=== PATIENT | female | born 1980 | race Caucasian/White ===

== ENCOUNTER 2019-08-31 16:13 | Emergency (ER) | payer OTHER ==
--- NOTE | 2019-08-31 16:24 | PDOC ---
Rapid Medical Evaluation Medical Evaluation: Allergies Allergy/AdvReac Type Severity Reaction Status Date / Time No Known Allergies Allergy Verified 09/04/14 12:05 I have performed a brief in-person evaluation of this patient. The patient presents with a chief complaint of: hx of DM, hypothyroidism found out she is via home preg test last week; light vaginal bleeding from yesterday; denies dysuria, abdominal pain; LNMP Jun 13 (estimated); cycle in Jul was short (1-2 days) Pertinent physical exam findings: In NAD, pelvic deferred I have ordered the following: Labs, pelvic US The patient will proceed to the ED for further evaluation. 08/31/19 16:20
[2019-08-31 16:35] VITALS: BP 122/82; PULSE 61; TEMP 97.9; BMI 30.9
[2019-08-31 18:55] LABS: EPI CELLS 1.9 /HPF (0-5/HPF); HYALINE CASTS 7 /lpf (0-8); URINE APPEARANCE TURBID; URINE BILIRUBIN NEGATIVE (NEGATIVE); URINE COLOR ORANGE; URINE GLUCOSE (UA) NEGATIVE (NEGATIVE); URINE KETONE NEGATIVE (NEGATIVE); URINE LEUK ESTERASE 1+ (NEGATIVE); URINE NITRITE NEGATIVE (NEGATIVE); URINE PROTEIN 2+ (NEGATIVE); URINE RBC 202 /hpf (0-4); URINE UROBILINOGEN 0.2 mg/dL (0.2-1.0); URINE WBC 34 /hpf (0-5)
--- NOTE | 2019-08-31 19:09 | PDOC ---
Documentation entered by Cristela Bland SCRIBE, acting as scribe for Margret Begum MD. Margret Begum MD: This documentation has been prepared by the scribe, Cristela Bland SCRIBE, under my direction and personally reviewed by me in its entirety. I confirm that the documentation accurately reflects all work, treatment, procedures, and medical decision making performed by me. History of Present Illness - General Chief Complaint: Vaginal Bleeding Stated Complaint: VAGINAL BLEEDING/ PREG. Time Seen by Provider: 08/31/19 16:20 History Source: Patient Exam Limitations: No Limitations - History of Present Illness Initial Comments: 08/31/19 18:13 The patient is a 39-year-old female, , with a past medical history significant for DM and hypothyroidism who presents to the emergency department with vaginal bleeding. The patient reports she noticed blood on the tissue while wiping. The patient states she has a pad on, however, she denies seeing blood on the pad. The patient reports her LMP was the beginning of July. The patient reports for the past 6-7 months shes been on fertility treatment with Dr. Pérez Westfall, reports she stopped seeing him due to travel issues but states she was still compliant with the medications. Denies hormone use. Allergies: NKA Social history: Denies the use of tobacco or recreational drugs. Rare use of alcohol. Surgical history: Denies surgical history. PCP: Dr. Nicola Gudino. Past History - Past Medical History Allergies/Adverse Reactions: Allergies Allergy/AdvReac Type Severity Reaction Status Date / Time No Known Allergies Allergy Verified 08/31/19 16:35 Home Medications: Ambulatory Orders Naproxen [Naprosyn -] 500 mg PO BID #30 tablet 06/26/14 Bacitracin - [Bacitracin Topical Ointment -] 1 applic TP TID #1 tube 09/04/14 COPD: No - Psycho Social/Smoking Cessation Hx Smoking History: Never smoked Hx Alcohol Use: No Drug/Substance Use Hx: No Substance Use Type: None Review of Systems - Review of Systems Able to Perform ROS?: Yes Comments:: 08/31/19 18:13 GENERAL/CONSTITUTIONAL: No fever or chills. No weakness. HEAD, EYES, EARS, NOSE AND THROAT: No change in vision. No ear pain or discharge. No sore throat. CARDIOVASCULAR: No chest pain, no shortness of breath, no loss of consciousness RESPIRATORY: No cough, wheezing, or hemoptysis. GASTROINTESTINAL: No nausea, vomiting, diarrhea or constipation. GENITOURINARY: +vaginal bleeding. No dysuria, frequency, or change in urination. MUSCULOSKELETAL: No joint or muscle swelling or pain. No neck or back pain. SKIN: No rash NEUROLOGIC: No vertigo, no change in strength/sensation. ENDOCRINE: No increased thirst. No abnormal weight change. HEMATOLOGIC/LYMPHATIC: No anemia, easy bleeding, or history of blood clots. ALLERGIC/IMMUNOLOGIC: No hives or skin allergy. *Physical Exam - Vital Signs Last Vital Signs Temp Pulse Resp BP Pulse Ox 97.9 F 61 16 122/82 100 08/31/19 16:33 08/31/19 16:33 08/31/19 16:33 08/31/19 16:33 08/31/19 16:33 - Physical Exam 08/31/19 18:13 GENERAL: Well-appearing, well-nourished. No apparent distress. HEENT: Normocephalic, atraumatic. PERRL, EOM intact. CARDIOVASCULAR: Normal S1, S2. Regular rate and rhythm. PULMONARY: Clear to auscultation bilaterally. ABDOMEN: Soft, non-distended, non-tender. EXTREMITIES: Normal ROM in all four extremities. No gross deformities. SKIN: Warm, dry. No rash NEUROLOGICAL: No focal neurological deficits. ED Treatment Course - LABORATORY CBC & Chemistry Diagram: 08/31/19 19:09 Medical Decision Making - Medical Decision Making 08/31/19 20:10 39-year-old female 1 para 0B presents because she has had a home positive test and has vaginal bleeding She had been following with a manager title who was a fertility specialist and had been on hormones and on the medications for about 7 months but stopped last month Beta-hCG is 311 UA she does have a mild UTI CBC shows no anemia Ultrasound no intrauterine identified This could be early or ectopic or recent miscarriage Endometrial thickness 0.5 cm Several small intramural and 7 serosal uterine lesions seen suggestive of fibroids At 2 cm right ovarian cyst noted without any intraluminal debris or blood Left ovary could not be identified There was no gross adnexal pathology There is no free intraperitoneal fluid within the visualized lower pelvis 02/24/20 20:39 Blood type is B+ therefore program will not be required Impression threatened AB versus early versus ectopic, UTI Plan repeat beta-hCG and ultrasound in 48 hours and start Keflex Discharge - Discharge Information Problems reviewed: Yes Clinical Impression/Diagnosis: Vaginal bleeding affecting early Condition: Good Disposition: HOME - Admission No - Follow up/Referral Referrals: Leny Gudino MD [Primary Care Provider] - Filippo Mcgovern MD [Staff Physician] - - Patient Discharge Instructions Patient Printed Discharge Instructions: DI for Threatened Additional Instructions: The transvaginal ultrasound did not identify but you have a positive test. Therefore You need to return in 48 hours for repeat ultrasound and repeat beta-hCG. Your blood type is B+. - Post Discharge Activity
[2019-08-31 19:18] LABS: BASO % 0.3 % (0-2.0); EOS % 7.1 % (0-4.5); HEMATOCRIT 38.5 % (32.4-45.2); HEMOGLOBIN 12.8 GM/dL (10.7-15.3); LYMPH % 30.3 % (8-40); MCH 29.2 pg (25.7-33.7); MCHC 33.2 g/dl (32.0-36.0); MEAN CELL VOLUME 88.1 fl (80-96); MEAN PLT VOLUME 8.1 fl (7.5-11.1); MONO % 6.9 % (3.8-10.2); NEUT % 55.4 % (42.8-82.8); PLATELET COUNT 378 K/MM3 (134-434); RBC 4.38 M/mm3 (3.60-5.2); RDW 13.7 % (11.6-15.6); WHITE BLOOD COUNT 10.9 K/mm3 (4.0-10.0)
[2019-08-31] MEDS ORDERED: CEPHALEXIN MONOHYDRATE 500 MG CAPSULE (UD) PO STA (20:40)
[2019-08-31] MEDS ORDERED: CEPHALEXIN MONOHYDRATE 500 MG CAPSULE (UD) ONE (20:50)
== END 2019-08-31 21:00 | disposition home or self-care (01) ==
LOC: JER 16:13
DX: O26.891 Other specified pregnancy related conditions, first trimester (principal); O20.8 Other hemorrhage in early pregnancy; O23.41 Unspecified infection of urinary tract in pregnancy, first trimester; Z3A.01 Less than 8 weeks gestation of pregnancy
CPT/HCPCS: 36415; 76817-TC; 81003; 84702; 84703; 85025; 86850; 86900; 86901; 99285-25